=== PATIENT | male | born 1990 | race Hispanic/Latino ===

== ENCOUNTER 2019-12-17 18:03 | Emergency (ER) | payer OTHER, SELFPAY ==
[2019-12-17 18:04] VITALS: BP 156/95; PULSE 80; RESP 18; TEMP 36.6; O2SAT 96; BMI 34.4
--- NOTE | 2019-12-17 18:09 | ED.RN ---
PT WORKERS COMP. PT LOOKED UP. ONLY TEST AT FILLER IN REQUEST
--- NOTE | 2019-12-17 18:16 | ED.RN ---
PER SGT ZHOU, NO TESTING NEEDED
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
[2019-12-17 19:17] VITALS: RESP 18; O2SAT 98
== END 2019-12-17 19:19 | disposition home or self-care (01) ==
LOC: ED 18:58
PROVIDERS: Emergency Provider Emergency Medicine
DX: S02.2XXA Fracture of nasal bones, initial encounter for closed fracture (principal); Y04.2XXA Assault by strike against or bumped into by another person, initial encounter; Y93.89 Activity, other specified; Y92.149 Unspecified place in prison as the place of occurrence of the external cause; Y99.0 Civilian activity done for income or pay
CPT/HCPCS: 70160; 99282